=== PATIENT | female | born 1985 | race Caucasian/White ===

== ENCOUNTER 2018-06-28 15:21 | Emergency (ER) | payer OTHER ==
[~2018-06-28] VITALS: Ht 162.6 cm; Wt 68.0 kg
--- NOTE | 2018-06-28 15:44 | NUR ---
PT IS IN ROOM #2B. DR CONNER EVALUATED THE PT.
--- NOTE | 2018-06-28 15:56 | NUR ---
Patient discharged to home in stable conditon. Written and verbal after care instructions given. Patient verbalizes understanding of instructions.
[2018-06-28 15:57] VITALS: BP 112/71
== END 2018-06-28 16:06 | disposition home or self-care (01) ==
LOC: ER 15:21
DX: S60.411A Abrasion of left index finger, initial encounter (principal); W25.XXXA Contact with sharp glass, initial encounter; Y93.89 Activity, other specified; Y92.89 Other specified places as the place of occurrence of the external cause; Y99.0 Civilian activity done for income or pay
CPT/HCPCS: A4663